=== PATIENT | male | born 2000 | race Caucasian/White ===

== ENCOUNTER 2023-11-26 20:37 | Emergency (ER) | payer OTHER, SELFPAY ==
[2023-11-26 20:40] VITALS: BP 137/86; PULSE 132; RESP 18; TEMP 37.3; O2SAT 98
--- NOTE | 2023-11-26 22:21 | ED.GENADULT ---
HPI - General Adult General Chief complaint: Skin/Abscess/Foreign Body Stated complaint: wound on coccyx Time Seen by Provider: 11/26/23 21:43 Source: patient Mode of arrival: ambulatory Limitations: no limitations History of Present Illness HPI narrative: This is a 23-year-old male who presents to the ED with chief complaint of draining abscess that was diagnosed on 11/22/2022. Patient reports that he an area of swelling to it in the pilonidal region that he was initially seen at urgent care. They were able to get lab work and a CT scan with report that he has brought with him. That scan showed a superficial peripherally enhancing lesion consistent with pilonidal abscess. No deep tracking seen on the CT scan. Patient states that he has been using gauze padding on the area and noticed today that the abscess had burst. He is seeking evaluation because of the burst. Denies fevers, chills, nausea, vomiting, abdominal pain or rectal pain. Related Data Allergies Allergy/AdvReac Type Severity Reaction Status Date / Time amoxicillin Allergy Unknown Verified 11/26/23 21:38 bacitracin Allergy Unknown Verified 11/26/23 21:38 [From Neosporin ([id number])] neomycin Allergy Unknown Verified 11/26/23 21:38 [From Neosporin ([id number])] polymyxin B Allergy Unknown Verified 11/26/23 21:38 [From Neosporin ([id number])] Review of Systems Review of Systems: All systems as dictated in HPI Exam Narrative: GENERAL: Well-appearing, well-nourished, and in no acute distress. HEAD: Normocephalic, atraumatic. EYES: PERRLA and EOMI. ENT: Nares clear, no rhinorrhea or epistaxis. Mucous membranes moist. Oropharynx without tonsillar hypertrophy exudate or other lesions. NECK: Supple. No adenopathy or masses. CHEST: No respiratory distress. Clear to auscultation. No wheezes rales or rhonchi HEART: Regular rate and rhythm. No murmur heard. Normal peripheral pulses. ABDOMEN: Soft, nontender, nondistended, normal active bowel sounds. MSK: Normal range of motion. No edema. SKIN: 3 x 1 cm of erythema and swelling to the pilonidal area, worse on the left. There is a central draining defect. Purulent material noted on exam. No surrounding induration or streaking erythema. NEURO: Alert and oriented x3. No focal deficits. PSYCH: Normal mood and affect. Course Vital Signs Vital signs: Vital Signs Temperature 99.2 F 11/26/23 20:40 Pulse Rate 132 H 11/26/23 20:40 Respiratory Rate 18 11/26/23 20:40 Blood Pressure 137/86 11/26/23 20:40 Pulse Oximetry 98 11/26/23 20:40 Oxygen Delivery Room Air 11/26/23 20:40 Temperature 99.2 F 11/26/23 20:40 Pulse Rate 132 H 11/26/23 20:40 Respiratory Rate 18 11/26/23 20:40 Blood Pressure 137/86 11/26/23 20:40 Pulse Oximetry 98 11/26/23 20:40 Oxygen Delivery Room Air 11/26/23 20:40 Medical Decision Making MDM Narrative Medical decision making narrative: This is a 23-year-old male who presents to the ED with chief complaint of a draining abscess to the pilonidal area. Vitals are normal. Exam shows superficial abscess to the pilonidal region. There is an area that is draining on exam. Discussed with the patient that this abscess is starting to drain it he is already on appropriate antibiotics by urgent care. Shared decision making to continue to manually drain the abscess on exam while I was in the room. The swelling has gone down drastically and he is feeling improved. Instructed to continue taking his clindamycin as prescribed. Will give surgical referral in case this becomes a recurrent problem. Pt will be discharged in stable condition. Return precautions given and supportive measures discussed. Pt is understanding and agreeable with plan for discharge and follow-up with PCP. Vital Signs Vital Signs: Vital Signs Temperature 99.2 F 11/26/23 20:40 Pulse Rate 132 H 11/26/23 20:40 Respiratory Rate 18 0
== END 2023-11-26 22:40 | disposition home or self-care (01) ==
PROVIDERS: Emergency Provider Physician Assistant
DX: L05.01 Pilonidal cyst with abscess (principal)
CPT/HCPCS: 99281